=== PATIENT | male | born 1985 | race American Indian/Alaskan Native ===

== ENCOUNTER 2020-02-16 15:19 | Inpatient (IN) | payer OTHER ==
--- NOTE | 2020-02-16 15:20 | Emergency Department Report ---
Blank Doc - Documentation Documentation: 34-year-old male that presents with chest pain and SOB. This initial assessment/diagnostic orders/clinical plan/treatment(s) is/are subject to change based on patient's health status, clinical progression and re- assessment by fellow clinical providers in the ED. Further treatment and workup at subsequent clinical providers discretion. Patient/guardians urged not to elope from the ED as their condition may be serious if not clinically assessed and managed. Initial orders include: 1- Patient sent to [facility] for further evaluation and treatment 2- cardiac workup
[2020-02-16] MEDS ORDERED: HEPARIN 1,000 UNIT/1 ML VIAL IV ONE (15:47)
[2020-02-16] MEDS ORDERED: ASPIRIN 81 MG TAB CHEW PO ONE (15:47)
--- NOTE | 2020-02-16 15:54 | Emergency Department Report ---
ED Chest Pain HPI - General Stated Complaint: ANXIETY/CHEST PAIN Time Seen by Provider: 02/16/20 15:19 Source: patient - History of Present Illness Initial Comments: Patient is a 34-year-old male with no significant past medical history. Patient brought to the emergency room via EMS complaining of chest pain that started approximately 2 PM today after he had an argument with his girlfriend. Patient describes his pain as substernal, pressure with radiation to the left arm. Patient rated his pain a 7 out of 10. Patient sent to triage. EKG in triage found patient to have inferior lateral STEMI. STEMI code immediately initiated by me. Patient discussed with Dr. Jackson, STEMI grocery manager on-call. Cardiac catheterization lab activated. Patient received aspirin and heparin bolus in the ER. MD Complaint: chest pain -: Sudden Pain Location: substernal Pain Radiation: LUE Quality: heaviness, pressure Consistency: constant Treatments Prior to Arrival: none - Related Data Previous Rx's Medication Instructions Recorded Last Taken Type Aspirin [Aspirin BABY CHEW TAB] 81 mg PO QDAY #30 tab.chew 02/18/20 Unknown Rx AtorvaSTATin [Lipitor] 80 mg PO QHS #30 tablet 02/18/20 Unknown Rx Clopidogrel [Plavix] 75 mg PO QDAY #60 tablet 02/18/20 Unknown Rx Metoprolol [Lopressor TAB] 25 mg PO BID #60 tablet 02/18/20 Unknown Rx Allergies Allergy/AdvReac Type Severity Reaction Status Date / Time No Known Allergies Allergy Unverified 02/16/20 15:56 Heart Score - HEART Score History: Highly suspicious EKG: Significant ST-depression Age: < 45 Risk factors: 1-2 risk factors Troponin: > 3x normal limit HEART Score: 7 - Critical Actions Critical Actions: >7 pts:50-65% risk of adverse cardiac event. Early invasive measures ED Review of Systems ROS: Stated complaint: ANXIETY/CHEST PAIN Other details as noted in HPI Comment: All other systems reviewed and negative Constitutional: denies: chills, fever Respiratory: denies: cough, shortness of breath, SOB with exertion Cardiovascular: chest pain. denies: palpitations Gastrointestinal: denies: abdominal pain, nausea, vomiting Musculoskeletal: denies: back pain Neurological: denies: headache, weakness, numbness, paresthesias, confusion, abnormal gait ED Past Medical Hx - Medications Home Medications: Home Medications Medication Instructions Recorded Confirmed Last Taken Type Aspirin [Aspirin BABY CHEW TAB] 81 mg PO QDAY #30 tab.chew 02/18/20 Unknown Rx AtorvaSTATin [Lipitor] 80 mg PO QHS #30 tablet 02/18/20 Unknown Rx Clopidogrel [Plavix] 75 mg PO QDAY #60 tablet 02/18/20 Unknown Rx Metoprolol [Lopressor TAB] 25 mg PO BID #60 tablet 02/18/20 Unknown Rx ED Physical Exam - General General appearance: alert, anxious, in distress - Head Head exam: Present: atraumatic, normocephalic, normal inspection - Eye Eye exam: Present: normal appearance - ENT ENT exam: Present: normal exam, normal orophraynx, mucous membranes moist - Neck Neck exam: Present: normal inspection, full ROM. Absent: tenderness, meningismus - Respiratory Respiratory exam: Present: normal lung sounds bilaterally - Cardiovascular Cardiovascular Exam: Present: regular rate, normal rhythm, normal heart sounds - GI/Abdominal GI/Abdominal exam: Present: soft, normal bowel sounds. Absent: distended, tenderness, guarding, rebound, rigid, organomegaly, mass, bruit, pulsatile mass, hernia - Extremities Exam Extremities exam: Present: normal inspection, full ROM, normal capillary refill. Absent: pedal edema, calf tenderness - Back Exam Back exam: Present: normal inspection, full ROM. Absent: CVA tenderness (R), CVA tenderness (L) - Neurological Exam Neurological exam: Present: alert, oriented X3, CN II-XII intact - Psychiatric Psychiatric exam: Present: normal affect, anxious - Skin Skin exam: Present: warm, intact, normal color ED Course Vital Signs 02/16/20 15:52 Pulse Rate 80 Respiratory 18 Rate Blood Pressure 153/107 O2 Sat by Pulse 100 Oximetry ED Medical Decision Making - Lab Data Result diagrams: 02/17/20 04:51 02/17/20 04:51 - EKG Data -: EKG Interpreted by Nc EKG shows normal: sinus rhythm Rate: normal - EKG Data 02/16/20 16:00 Inferior lateral STEMI - Medical Decision Making Patient is a 34-year-old male with no significant past medical history. Patient brought to the emergency room via EMS complaining of chest pain that started approximately 2 PM today after he had an argument with his girlfriend. Patient describes his pain as substernal, pressure with radiation to the left arm. Patient rated his pain a 7 out of 10. Patient sent to triage. EKG in triage found patient to have inferior lateral STEMI. STEMI code immediately initiated by me. Patient discussed with Dr. Jackson, STEMI grocery manager on-call. Cardiac catheterization lab activated. Patient received aspirin and heparin bolus in the ER. Patient moved to cardiac catheterization lab. I discussed the patient with Dr. Park, he agreed to admit the patient to medical service for further management. Critical Care Time: Yes Critical care time in (mins) excluding proc time.: 30 Critical care attestation.: If time is entered above; I have spent that time in minutes in the direct care of this critically ill patient, excluding procedure time. ED Disposition Clinical Impression: STEMI (ST elevation myocardial infarction) Disposition: [id number] OP ADMIT IP TO THIS HOSP Is pt being admited?: Yes Condition: Stable
[2020-02-16 16:12] LABS: INR 0.93 (0.87-1.13)
[2020-02-16] MEDS ORDERED: NITROGLYCERIN SYRINGE 3 ML ONE (16:12)
[2020-02-16] MEDS ORDERED: LIDOCAINE (2%) 20 MG/1 ML VIAL 20 ML MDV INFILTRATI ONE (16:12)
[2020-02-16] MEDS ORDERED: HEPARIN/NS 5000 UNIT/500ML 1,000 ML IR ONE (16:12)
[2020-02-16] MEDS ORDERED: VERAPAMIL 5 MG/2 ML INJ ONE (16:12)
[2020-02-16 16:13] LABS: Partial Thromboplastin Time 21.2 Sec. (24.2-36.6)
[2020-02-16] MEDS ORDERED: fentaNYL 100 MCG/2 ML INJ ONE (16:13)
[2020-02-16] MEDS ORDERED: MIDAZOLAM 2 MG/2 ML INJ ONE (16:13)
[2020-02-16] MEDS ORDERED: SODIUM CHLORIDE 0.9% 1000 ML 1,000 ML ONE (16:16)
[2020-02-16] MEDS: HEPARIN 10,000 UNITS/10 ML VIAL ONE ×4 (16:38→17:17)
[2020-02-16] MEDS ORDERED: BIVALIRUDIN 250 MG INJ IV ONE ×2 (16:41→16:42)
[2020-02-16 16:47] LABS: Hematocrit 44.5 % (35.5-45.6); Hemoglobin 14.4 gm/dl (11.8-15.2); Mean Corpuscular HGB Conc 32 % (32-34); Mean Corpuscular Volume 92 fl (84-94); Platelet Count 359 K/mm3 (140-440); Red Blood Count 4.83 M/mm3 (3.65-5.03); Red Cell Distribution Width 14.2 % (13.2-15.2)
[2020-02-16] MEDS ORDERED: TIROFIBAN/NS 12,500 MCG/250 ML BAG IV ONE (16:52)
[2020-02-16] MEDS ORDERED: HEPARIN 10,000 UNITS/10 ML VIAL ONE ×2 (16:58→17:48)
--- NOTE | 2020-02-16 17:15 | History and Physical Report ---
History of Present Illness Date of examination: 02/16/20 Date of admission: 02/16/2020 Chief complaint: Severe retrosternal chest pain since 2 PM History of present illness: 34-year-old -[place] male with no significant past medical history brought into the emergency room by EMS for severe retrosternal chest pain that started approximately at 2 PM today after he had an argument with his girlfriend. Chest pain is substernal and 10 on a scale of 1-10. With radiation to the left arm. In the triage EKG was found to have inferior lateral STEMI and code STEMI was called. Patient was taken to cardiac Renal Case Manager for PCI. Patient also received aspirin and heparin bolus in the emergency room prior to being shifted to Renal Case Manager. Cupola Tender Helper on-call is Dr. Walls. Patient was diaphoretic. No shortness of breath. No exacerbating or relieving factors except anger in this case. In the Renal Case Manager patient had 1 episode of ventricular arrhythmia and was converted back to atrial fibrillation with RVR as per the cardiology. - HEART Score History: Highly suspicious EKG: Significant ST-depression Age: < 45 Risk factors: 1-2 risk factors Past History Past Medical History: No medical history Past Surgical History: No surgical history Social history: lives with family, full code Family history: hypertension Medications and Allergies Allergies Allergy/AdvReac Type Severity Reaction Status Date / Time No Known Allergies Allergy Unverified 02/16/20 15:56 Home Medications Medication Instructions Recorded Confirmed Last Taken Type No Known Home Medications [No 02/16/20 02/16/20 Unknown History Reported Home Medications] Review of Systems All systems: negative Constitutional: no weight loss, no weight gain, no fever, no chills, no sweats, no night sweats Ears, nose, mouth and throat: no ear pain, no ear discharge, no tinnitis, no decreased hearing, no nose pain, no nasal congestion Cardiovascular: chest pain, no orthopnea, no palpitations, no rapid/irregular heart beat, no edema, no syncope, no lightheadedness, no shortness of breath, no dyspnea on exertion, no paroxysmal nocturnal dyspnea, no claudication, no phlebitis Respiratory: no cough, no cough with sputum, no excessive sputum, no hemoptysis, no shortness of breath, no dyspnea on exertion Gastrointestinal: no abdominal pain, no nausea, no vomiting, no diarrhea, no constipation, no change in bowel habits, no hematemesis, no coffee ground emesis Genitourinary Male: no dysuria, no hematuria, no flank pain Rectal: no pain Musculoskeletal: no neck stiffness, no neck pain, no shooting arm pain, no arm numbness/tingling, no low back pain, no shooting leg pain, no leg numbness/tingling, no redness of joints Integumentary: no rash, no pruritis, no redness, no sores, no wounds, no jaundice, no boils, no blisters Neurological: no head injury, no transient paralysis, no paralysis, no weakness, no parathesias, no numbness, no tingling, no seizures, no syncope, no tremors, no ataxia, no lack of coordination Psychiatric: no anxiety, no memory loss, no change in sleep habits, no sleep disturbances, no insomnia, no hypersomnia, no change in appetite, no change in libido, no suicidal ideation, no disorientation, no hallucinations Endocrine: no cold intolerance, no heat intolerance, no polyphagia, no excessive thirst, no polydipsia, no polyuria, no nocturia, no excessive sweating, no flushing, no weight change Hematologic/Lymphatic: no easy bruising, no easy bleeding Allergic/Immunologic: no urticaria, no allergic rhinitis, no wheezing Exam - Constitutional Vitals: Temp Pulse Resp BP Pulse Ox 80 18 153/107 100 02/16/20 15:52 02/16/20 15:52 02/16/20 15:52 02/16/20 15:52 General appearance: Present: no acute distress, well-nourished - EENT Eyes: Present: PERRL ENT: hearing intact, clear oral mucosa - Neck Neck: Present: supple, normal ROM - Respiratory Respiratory effort: normal Respiratory: bilateral: CTA - Cardiovascular Heart rate: 80 Rhythm: regular Heart Sounds: Present: S1 & S2. Absent: rub, click - Extremities Extremities: no ischemia, pulses intact, pulses symmetrical, No edema Peripheral Pulses: within normal limits - Abdominal General gastrointestinal: Present: soft, non-tender, non-distended, normal bowel sounds Male genitourinary: Present: normal - Integumentary Integumentary: Present: clear, warm, dry - Musculoskeletal Musculoskeletal: gait normal, strength equal bilaterally - Psychiatric Psychiatric: appropriate mood/affect, intact judgment & insight - Neurologic Neurologic: CNII-XII intact, moves all extremities HEART Score - HEART Score History: Highly suspicious EKG: Significant ST-depression Age: < 45 Risk factors: 1-2 risk factors Troponin: < normal limit HEART Score: 5 - Critical Actions Critical Actions: >7 pts:50-65% risk of adverse cardiac event. Early invasive measures Results - Labs CBC & Chem 7: 02/16/20 Unknown 02/16/20 18:01 Labs: Laboratory Last Values WBC 11.9 K/mm3 (4.5-11.0) H 02/16/20 Unknown RBC 4.83 M/mm3 (3.65-5.03) 02/16/20 Unknown Hgb 14.4 gm/dl (11.8-15.2) 02/16/20 Unknown Hct 44.5 % (35.5-45.6) 02/16/20 Unknown MCV 92 fl (84-94) 02/16/20 Unknown MCH 30 pg (28-32) 02/16/20 Unknown MCHC 32 % (32-34) 02/16/20 Unknown RDW 14.2 % (13.2-15.2) 02/16/20 Unknown Plt Count 359 K/mm3 (140-440) 02/16/20 Unknown Lymph % (Auto) Dry Mill Operator 02/16/20 Unknown Tripp % (Auto) Dry Mill Operator 02/16/20 Unknown Eos % (Auto) Dry Mill Operator 02/16/20 Unknown Baso % (Auto) Dry Mill Operator 02/16/20 Unknown Lymph # (Auto) Dry Mill Operator 02/16/20 Unknown Tripp # (Auto) Dry Mill Operator 02/16/20 Unknown Eos # (Auto) Dry Mill Operator 02/16/20 Unknown Baso # (Auto) Dry Mill Operator 02/16/20 Unknown Seg Neutrophils % Dry Mill Operator 02/16/20 Unknown Seg Neutrophils # Dry Mill Operator 02/16/20 Unknown PT 12.6 Sec. (12.2-14.9) 02/16/20 Unknown INR 0.93 (0.87-1.13) 02/16/20 Unknown APTT 21.2 Sec. (24.2-36.6) L 02/16/20 Unknown Short CBC 02/16/20 Range/Units Unknown WBC 11.9 H (4.5-11.0) K/mm3 Hgb 14.4 (11.8-15.2) gm/dl Hct 44.5 (35.5-45.6) % Plt Count 359 (140-440) K/mm3 Short CBC 02/16/20 Range/Units Unknown WBC 11.9 H (4.5-11.0) K/mm3 Hgb 14.4 (11.8-15.2) gm/dl Hct 44.5 (35.5-45.6) % Plt Count 359 (140-440) K/mm3 BMP 02/16/20 18:01 Sodium 137 Potassium 3.8 Chloride 101.1 Carbon Dioxide 24 BUN 10 Creatinine 0.9 Glucose 115 H Calcium 8.3 L Cardiac Enzymes 02/16/20 02/16/20 02/16/20 Range/Units 18:01 18:01 19:40 Total Creatine Kinase 670 H 1102 H (55-170) units/L CK-MB (CK-2) 21.7 H 87.5 H (0.0-4.0) ng/mL Troponin T 0.176 H* 0.531 H* D (0.00-0.029) ng/mL Liver Function 02/16/20 Range/Units 18:01 Total Bilirubin 0.40 (0.1-1.2) mg/dL AST 32 (5-40) units/L ALT 27 (7-56) units/L Alkaline Phosphatase 65 (35-129) units/L Albumin 3.8 L (3.9-5) g/dL Urine 02/16/20 Range/Units 20:07 Urine Color Straw (Yellow) Urine pH 8.0 H (5.0-7.0) Ur Specific [place] 1.026 (1.003-1.030) Urine Protein <15 mg/dl (Negative) mg/dL Urine Glucose (UA) Neg (Negative) mg/dL - Imaging and Cardiology EKG: report reviewed (Inferior wall STEMI) Assessment and Plan Assessment and plan: The high probability OF a clinically significant sudden or life-threatening deterioration of the cardiorespiratory system and endocrine system required my full and direct attention, intervention and postoperative management. The aggregate critical care time was 40 minutes. The time is in addition to time spent performing reported procedures but includes the followin: Data review and interpretation 2: Patient assessment and monitoring of vital signs 3: Documentation 4:: Medication orders and management Advance Directives: Yes (Full code) VTE prophylaxis?: Chemical Plan of care discussed with patient/family: Yes - Patient Problems (1) STEMI (ST elevation myocardial infarction) Current Visit: No Status: Acute Plan to address problem: Patient was taken to Renal Case Manager and had PCI Had one episode of ventricular arrhythmia which was converted to sinus rhythm Patient is now in A. fib Patient is on Aggrastat Patient had stent to circumflex Total CK was 1102 and CK-MB was elevated in mid 80s Troponin also elevated significantly which is consistent with STEMI Brilinta 90 mg twice a day added (2) Hypertension Current Visit: Yes Status: Chronic Qualifiers: Hypertension type: essential hypertension Qualified Code(s): I10 - Essential (primary) hypertension Plan to address problem: No history of hypertension Patient blood pressure has been high which can be pain induced Patient started on metoprolol 25 twice daily for cardioprotective reasons (3) DVT prophylaxis Current Visit: Yes Status: Acute Plan to address problem: Patient on Aggrastat and GI prophylaxis
[2020-02-16] MEDS ORDERED: ACETAMINOPHEN 325 MG TAB PO PRN (17:16)
[2020-02-16] MEDS ORDERED: oxyCODONE /ACETAMINOPHEN 5-325MG TAB PO PRN (17:16)
[2020-02-16] MEDS ORDERED: HYDROmorphone 1 MG/1 ML INJ IV PRN (17:16)
[2020-02-16] MEDS ORDERED: ONDANSETRON 4 MG/2 ML INJ IV PRN (17:16)
[2020-02-16] MEDS ORDERED: TICAGRELOR 90 MG TAB ONE (17:19)
[2020-02-16] MEDS ORDERED: D5W/0.9% NACL 1,000 ML IV SCH (18:00)
[2020-02-16] MEDS ORDERED: SODIUM CHLORIDE IV SCH (18:16)
[2020-02-16] MEDS ORDERED: TIROFIBAN IV SCH (18:16)
[2020-02-16 18:26] LABS: Creatine Kinase MB 21.7 ng/mL (0.0-4.0)
[2020-02-16 18:27] LABS: BUN/Creatinine Ratio 11; Blood Urea Nitrogen 10 mg/dL (9-20); Calcium 8.3 mg/dL (8.4-10.2)
[2020-02-16 18:28] LABS: Alanine Aminotransferase 27 units/L (7-56); Albumin 3.8 g/dL (3.9-5); Hemolysis Index 8
--- NOTE | 2020-02-16 19:21 | Cardiac Catherization Report ---
CARDIAC CATHETERIZATION REPORT. CLINICAL INFORMATION: The patient is a pleasant 34-year-old male presented to the ED at [facility] with a history of chest pains associated with shortness of breath and palpitations and sweating. EKG showed inferolateral wall injury. He is a chronic tobacco smoker, smokes cigarettes on a regular basis for more than 20+ years. He also smokes marijuana. He has hypertension present. I reviewed his EKG, had an extensive discussion with the patient, agreed to proceed for diagnostic cardiac catheterization with the intention to proceed for primary PCI of the culprit lesion. Risks, options, and benefits were extensively discussed. The patient has labs drawn in the ED; however, the sample was hemolyzed, I do not have baseline labs before proceeding for heart catheterization. PROCEDURES PERFORMED: 1. Left heart catheterization. 2. Selective coronary angiogram. 3. LV angiogram. 4. Primary PCI of the proximal left circumflex coronary artery with a deployment of 2.5 x 38 mm Resolute [place] SILVANA. 5. Acute DHF. DESCRIPTION OF PROCEDURE: The right wrist area was cleaned and draped in sterile fashion. A 2% lidocaine was used for local anesthesia. Right radial artery was accessed with a micropuncture needle and a 6-Omani glide sheath was inserted. Selective angiograms of the left and right coronary systems were obtained with a 5-Omani [place] diagnostic catheter. LV angiogram was obtained in BHARDWAJ projection with a 6-Omani pigtail catheter. After reviewing the diagnostic angiographic images, we proceeded for intervention to the left circumflex coronary artery. CORONARY ANGIOGRAM FINDINGS: Left main coronary artery is large caliber vessel, free of disease. LAD is a large caliber vessel, distal LAD has intraluminal irregularities. Principal diagonal branch is a medium caliber vessel, ostium has 40%-50% stenosis noted. Left circumflex coronary artery is a medium caliber vessel, proximal left circumflex coronary artery is 100% occluded with NELI 0 flow. Right coronary artery is a large caliber vessel, proximal RCA has a 50% stenosis, mid RCA has 60-70% stenosis, these lesions are stable lesions. Right PDA is a small to medium caliber vessel, free of disease. LV ANGIOGRAM: LV angiogram was obtained in the BHARDWAJ projection. Left ventricular ejection fraction is 50%, LVEDP is 23 mmHg. PCI to proximal left circumflex coronary artery. The patient was given heparin during the procedure. ACT is maintained about 200, was also given IV Aggrastat followed by Aggrastat drip protocol. A 6-Omani EBU 3.0 guiding catheter was used to engage the left main coronary artery. A 0.014 BMW wire was used, successfully cross the totally occluded lesion in the proximal segment of the left circumflex coronary artery, subsequently predilated with 2.5 x 12 mm Euphora balloon. Subsequently, the proximal left circumflex coronary artery into OM branch is stented with 2.5 x 38 mm Resolute [place] SILVANA. The stent was postdilated with a 2.75 x 12 mm balloon. Post-intervention angiographic image of the left circumflex coronary artery demonstrated residual stenosis of 0% in the stented segment, NELI 3 flow noted in the left circumflex coronary artery/OM system. The patient tolerated the procedure very well. At the end of the procedure, the guiding catheter and guidewire were removed, no complications were noted. The patient had one episode of ventricular fibrillation, which was successfully resuscitated with one shock. The patient was hemodynamically stable after that with a marginal blood pressure. The patient was alert, awake, and neurologically and hemodynamically stable prior to transfer from lab courier to ICU. 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 Proximal left circumflex coronary artery is 100% occluded with NELI 0 flow, subsequently performed primary PCI of the proximal left circumflex coronary artery with a deployment of 2.5 x 38 mm Resolute [place] SILVANA, establishing NELI 3 flow with a residual stenosis 0%. RCA has a moderate disease in the proximal segment, severe disease in the mid segment. Mid segment has 60-70% stenosis, stable lesion. LVEF 50%. LVEDP is increased, 23 mmHg, acute diastolic heart failure -- I believe it will improve with optimal medical therapy over a period of time. RECOMMENDATIONS: 1. Aspirin 81 mg p.o. every day, uninterruptedly rest of the life. 2. Brilinta 90 mg p.o. b.i.d. uninterruptedly at least for 1 year. 3. Beta paul therapy along with statin therapy. 4. Elective PCI to RCA. 5. We will follow up the labs, especially the lipid profile. His long-term cardiovascular health/overall prognosis depends upon tobacco cessation and staying away from marijuana, explained to the patient at length about it. Discussed with the hospitalist team regarding his management. Explained and recommended elective intervention to the distal RCA after optimizing the medical therapy in terms of treating the cardiovascular risk factors. JOB# [id number] MELY/TREY BUTCHER
[2020-02-16 20:33] LABS: Bilirubin,Urine NEG (Negative); Blood,Urine NEG (Negative); Color,Urine Straw (Yellow); Protein,Urine <15 mg/dL mg/dL (Negative)
[2020-02-16 20:40] LABS: Amphetamine Screen,Urine PRESUMPTIVE NEGATIVE; Benzodiazepines Screen,Urine PRESUMPTIVE POSITIVE; Cannabinoid Screen,Urine PRESUMPTIVE POSITIVE; Cocaine Screen,Urine PRESUMPTIVE NEGATIVE; Methadone Screen,Urine PRESUMPTIVE NEGATIVE; Opiate Screen,Urine PRESUMPTIVE NEGATIVE
[2020-02-16 20:52] LABS: Chol/HDL Ratio 6.33 %
[2020-02-16 20:55] LABS: Creatine Kinase MB 87.5 ng/mL (0.0-4.0)
--- NOTE | 2020-02-16 21:16 | XRay Report ---
CHEST 1 VIEW INDICATION / CLINICAL INFORMATION: Chest Pain. COMPARISON: None available. FINDINGS: SUPPORT DEVICES: None. HEART / MEDIASTINUM: No significant abnormality. LUNGS / PLEURA: No significant pulmonary or pleural abnormality. No pneumothorax. ADDITIONAL FINDINGS: No significant additional findings. IMPRESSION: 1. No acute findings. Signer Name: Rio Selby MD Signed: 02/16/2020 9:12 PM Workstation Name: [id number]
[2020-02-16] MEDS: FAMOTIDINE 20 MG/2 ML INJ IV SCH (21:32)
[2020-02-16] MEDS: TICAGRELOR 90 MG TAB PO SCH (21:32)
[2020-02-16] MEDS: METOPROLOL TARTRATE 25 MG TAB PO SCH (21:32)
[2020-02-16 23:55] LABS: Creatine Kinase MB 171.8 ng/mL (0.0-4.0)
[2020-02-17 05:38] LABS: Basophils % (Auto) 0.3 % (0.0-1.8); Eosinophils # (Auto) 0.2 K/mm3 (0.0-0.4); Eosinophils % (Auto) 1.6 % (0.0-4.3); Hematocrit 40.3 % (35.5-45.6); Hemoglobin 13.4 gm/dl (11.8-15.2); Lymphocytes # (Auto) 2.5 K/mm3 (1.2-5.4); Lymphocytes % (Auto) 20.2 % (13.4-35.0); Mean Corpuscular HGB Conc 33 % (32-34); Mean Corpuscular Volume 92 fl (84-94); Platelet Count 329 K/mm3 (140-440); Red Blood Count 4.38 M/mm3 (3.65-5.03)
[2020-02-17 05:49] LABS: BUN/Creatinine Ratio 11; Blood Urea Nitrogen 9 mg/dL (9-20); Calcium 8.7 mg/dL (8.4-10.2); Hemolysis Index 13
[2020-02-17 05:52] LABS: Creatine Kinase MB 165.9 ng/mL (0.0-4.0)
[2020-02-17] MEDS: TICAGRELOR 90 MG TAB PO SCH ×2 (09:27→22:20)
[2020-02-17] MEDS: FAMOTIDINE 20 MG/2 ML INJ IV SCH ×2 (09:27→22:20)
[2020-02-17] MEDS: METOPROLOL TARTRATE 25 MG TAB PO SCH ×4 (09:27→23:31)
[2020-02-17] MEDS: ASPIRIN 81 MG TAB CHEW PO SCH (09:27)
--- NOTE | 2020-02-17 09:50 | Progress Note ---
<CARLOS ALBERTODOYLE - Last Filed: 02/17/20 10:08> Assessment and Plan Acute STEMI s/p PCI of the proximal left Cx using Resolute [place] drug eluting stent currently on DAPT with Brilinta and aspirin Recommendations: Advised smoking cessation. Obtain an echocardiogram. Continue medical therapy for coronary artery disease. As an outpatient, will plan for elective intervention to the distal RCA. Okay to transfer to telemetry today. Subjective Date of service: 02/17/20 Interval history: Patient is resting in bed and appears well. He denies chest pain. Denies unusual shortness of breath and palpitations. Objective Vital Signs Temp Pulse Pulse Resp BP Pulse Ox 02/17/20 09:27 96 H 122/82 02/17/20 09:01 110 H 9 L 96/69 97 02/17/20 08:45 101 H 19 104/74 97 02/17/20 08:31 119 H 18 113/68 99 02/17/20 08:15 103 H 15 113/59 97 02/17/20 08:00 97.7 F 110 H 110 H 23 126/83 99 02/17/20 07:45 102 H 22 120/77 98 02/17/20 07:30 101 H 22 115/87 96 02/17/20 07:15 94 H 24 126/87 99 02/17/20 07:00 80 33 H 127/99 89 02/17/20 06:45 106 H 34 H 135/100 96 02/17/20 06:31 106 H 23 61/37 97 02/17/20 06:15 113 H 17 116/65 97 02/17/20 06:01 84 15 135/82 02/17/20 05:45 109 H 18 129/78 92 02/17/20 05:30 96 H 13 120/72 100 02/17/20 05:15 107 H 29 H 132/86 96 02/17/20 05:01 111 H 11 L 132/86 98 02/17/20 04:45 100 H 16 122/83 99 02/17/20 04:31 82 27 H 130/86 96 02/17/20 04:15 106 H 21 107/62 95 02/17/20 04:00 107 H 95 H 25 H 126/87 96 02/17/20 03:45 108 H 23 99/72 93 10/08/20 03:40 97.8 F 10/08/20 03:30 89 26 H 102/69 92 02/17/20 03:15 87 25 H 108/74 92 02/17/20 03:01 101 H 25 H 123/82 92 02/17/20 02:45 100 H 20 126/77 97 02/17/20 02:30 122 H 17 123/78 93 02/17/20 02:15 90 18 116/84 97 02/17/20 02:01 118 H 16 122/100 100 02/17/20 01:45 97 H 13 137/92 96 02/17/20 01:31 95 H 25 H 109/67 95 02/17/20 01:15 121 H 22 156/85 97 02/17/20 01:01 122 H 22 116/67 95 02/17/20 00:45 121 H 24 115/80 93 02/17/20 00:31 105 H 12 123/89 96 02/17/20 00:15 112 H 16 121/75 97 02/17/20 00:00 97.6 F 100 H 105 H 20 124/91 95 02/16/20 23:45 112 H 16 136/81 98 02/16/20 23:31 102 H 12 74/47 98 02/16/20 23:15 120 H 25 H 108/75 98 02/16/20 23:00 97 H 21 127/97 97 02/16/20 22:45 120 H 16 130/87 98 02/16/20 22:31 114 H 12 140/96 94 02/16/20 22:29 117 H 17 96 02/16/20 22:16 133 H 19 161/101 97 02/16/20 22:00 124 H 13 147/102 99 02/16/20 21:46 111 H 20 137/67 98 02/16/20 21:32 131 H 120/91 02/16/20 21:30 137 H 26 H 140/96 98 02/16/20 21:16 141 H 14 137/104 99 02/16/20 21:00 134 H 19 131/92 98 02/16/20 20:46 133 H 13 139/102 99 02/16/20 20:30 142 H 21 134/87 98 02/16/20 20:16 129 H 16 162/94 98 02/16/20 20:00 96.6 F L 114 H 124 H 16 140/90 99 02/16/20 19:46 147 H 15 140/90 100 02/16/20 19:30 131 H 19 140/105 98 02/16/20 19:16 113 H 13 149/96 99 02/16/20 19:00 125 H 18 131/89 99 02/16/20 18:46 121 H 22 132/93 98 02/16/20 18:30 98 02/16/20 15:52 80 18 153/107 100 - Physical Examination General: No Apparent Distress HEENT: Positive: PERRL Neck: Positive: trachea midline Cardiac: Positive: Reg Rate and Rhythm Lungs: Positive: Decreased Breath Sounds Neuro: Positive: Grossly Intact Incision: Cardiac Cath Site (right radial) - Labs and Meds Cardiac Enzymes 02/16/20 02/16/20 02/16/20 Range/Units 18:01 18:01 19:40 AST 32 (5-40) units/L CK-MB (CK-2) 21.7 H 87.5 H (0.0-4.0) ng/mL 02/16/20 02/17/20 Range/Units 23:11 04:51 AST (5-40) units/L CK-MB (CK-2) 171.8 H 165.9 H (0.0-4.0) ng/mL Coagulation 02/16/20 Range/Units Unknown PT 12.6 (12.2-14.9) Sec. INR 0.93 (0.87-1.13) APTT 21.2 L (24.2-36.6) Sec. Lipids 02/16/20 Range/Units 19:40 Triglycerides 87 (2-149) mg/dL Cholesterol 228 H (50-199) mg/dL HDL Cholesterol 36 L (40-59) mg/dL Cholesterol/HDL Ratio 6.33 % CBC 02/16/20 02/17/20 Range/Units Unknown 04:51 WBC 11.9 H 12.4 H (4.5-11.0) K/mm3 RBC 4.83 4.38 (3.65-5.03) M/mm3 Hgb 14.4 13.4 (11.8-15.2) gm/dl Hct 44.5 40.3 (35.5-45.6) % Plt Count 359 329 (140-440) K/mm3 Lymph # (Auto) Seat Cover Cutter 2.5 [place] # (Auto) Seat Cover Cutter 1.0 H Eos # (Auto) Seat Cover Cutter 0.2 Baso # (Auto) Seat Cover Cutter 0.0 Comprehensive Metabolic Panel 02/16/20 02/17/20 Range/Units 18:01 04:51 Sodium 137 139 (137-145) mmol/L Potassium 3.8 3.8 (3.6-5.0) mmol/L Chloride 101.1 104.3 (98-107) mmol/L Carbon Dioxide 24 23 (22-30) mmol/L BUN 10 9 (9-20) mg/dL Creatinine 0.9 0.8 (0.8-1.3) mg/dL Glucose 115 H 108 H (75-100) mg/dL Calcium 8.3 L 8.7 (8.4-10.2) mg/dL AST 32 (5-40) units/L ALT 27 (7-56) units/L Alkaline Phosphatase 65 (35-129) units/L Total Protein 6.3 (6.3-8.2) g/dL Albumin 3.8 L (3.9-5) g/dL - Imaging and Cardiology EKG: report reviewed (Inferior wall STEMI) <MAGGIE SANCHEZ - Last Filed: 02/17/20 21:01> Subjective Interval history: I SAW THIS PT & AGREE WITH THE Dx & Tx PLAN Objective Vital Signs Temp Pulse Pulse Resp BP Pulse Ox 02/17/20 18:53 110 H 137/69 02/17/20 17:01 110 H 15 137/69 100 02/17/20 16:45 128 H 16 137/69 100 02/17/20 16:30 111 H 18 137/69 99 02/17/20 16:15 114 H 20 109/82 96 02/17/20 16:00 97.9 F 106 H 106 H 14 113/77 97 02/17/20 15:45 109 H 14 108/86 99 02/17/20 15:31 108 H 19 114/71 97 02/17/20 15:15 122 H 16 108/86 100 02/17/20 15:00 102 H 19 88/42 98 02/17/20 14:45 109 H 21 93/51 100 02/17/20 14:31 121 H 18 90/52 98 02/17/20 14:15 120 H 24 95/62 96 10/08/20 14:00 88 25 H 111/69 97 02/17/20 13:46 113 H 105/55 02/17/20 13:45 104 H 22 105/55 98 02/17/20 13:31 110 H 16 97/60 99 02/17/20 13:15 102 H 14 110/63 99 02/17/20 13:01 98 H 11 L 108/71 100 02/17/20 12:45 98 H 18 123/85 99 02/17/20 12:31 118 H 24 125/89 98 02/17/20 12:16 112 H 20 127/85 100 02/17/20 12:00 97.8 F 104 H 104 H 12 121/89 98 02/17/20 11:45 102 H 13 109/69 99 02/17/20 11:31 117 H 15 111/75 96 02/17/20 11:15 96 H 16 111/75 98 02/17/20 11:01 113 H 20 123/96 94 02/17/20 10:45 98 H 21 117/77 96 02/17/20 10:30 105 H 17 120/82 95 02/17/20 10:15 109 H 19 96/69 96 02/17/20 10:14 108 H 24 99 02/17/20 09:45 97 H 20 113/81 99 02/17/20 09:31 99 H 17 108/80 96 02/17/20 09:27 96 H 122/82 02/17/20 09:15 104 H 22 118/84 98 02/17/20 09:01 110 H 9 L 96/69 97 02/17/20 08:45 101 H 19 104/74 97 02/17/20 08:31 119 H 18 113/68 99 02/17/20 08:15 103 H 15 113/59 97 02/17/20 08:00 97.7 F 110 H 110 H 23 126/83 99 02/17/20 07:45 102 H 22 120/77 98 02/17/20 07:30 101 H 22 115/87 96 02/17/20 07:15 94 H 24 126/87 99 02/17/20 07:00 80 33 H 127/99 89 02/17/20 06:45 106 H 34 H 135/100 96 02/17/20 06:31 106 H 23 61/37 97 02/17/20 06:15 113 H 17 116/65 97 02/17/20 06:01 84 15 135/82 02/17/20 05:45 109 H 18 129/78 92 02/17/20 05:30 96 H 13 120/72 100 02/17/20 05:15 107 H 29 H 132/86 96 02/17/20 05:01 111 H 11 L 132/86 98 02/17/20 04:45 100 H 16 122/83 99 02/17/20 04:31 82 27 H 130/86 96 02/17/20 04:15 106 H 21 107/62 95 02/17/20 04:00 107 H 95 H 25 H 126/87 96 02/17/20 03:45 108 H 23 99/72 93 02/17/20 03:40 97.8 F 02/17/20 03:30 89 26 H 102/69 92 02/17/20 03:15 87 25 H 108/74 92 02/17/20 03:01 101 H 25 H 123/82 92 02/17/20 02:45 100 H 20 126/77 97 02/17/20 02:30 122 H 17 123/78 93 02/17/20 02:15 90 18 116/84 97 02/17/20 02:01 118 H 16 122/100 100 02/17/20 01:45 97 H 13 137/92 96 02/17/20 01:31 95 H 25 H 109/67 95 02/17/20 01:15 121 H 22 156/85 97 02/17/20 01:01 122 H 22 116/67 95 02/17/20 00:45 121 H 24 115/80 93 02/17/20 00:31 105 H 12 123/89 96 02/17/20 00:15 112 H 16 121/75 97 02/17/20 00:00 97.6 F 100 H 105 H 20 124/91 95 02/16/20 23:45 112 H 16 136/81 98 02/16/20 23:31 102 H 12 74/47 98 02/16/20 23:15 120 H 25 H 108/75 98 02/16/20 23:00 97 H 21 127/97 97 02/16/20 22:45 120 H 16 130/87 98 02/16/20 22:31 114 H 12 140/96 94 02/16/20 22:29 117 H 17 96 02/16/20 22:16 133 H 19 161/101 97 02/16/20 22:00 124 H 13 147/102 99 02/16/20 21:46 111 H 20 137/67 98 02/16/20 21:32 131 H 120/91 02/16/20 21:30 137 H 26 H 140/96 98 02/16/20 21:16 141 H 14 137/104 99 - Labs and Meds Cardiac Enzymes 02/16/20 02/16/20 02/17/20 Range/Units 19:40 23:11 04:51 CK-MB (CK-2) 87.5 H 171.8 H 165.9 H (0.0-4.0) ng/mL CBC 02/17/20 Range/Units 04:51 WBC 12.4 H (4.5-11.0) K/mm3 RBC 4.38 (3.65-5.03) M/mm3 Hgb 13.4 (11.8-15.2) gm/dl Hct 40.3 (35.5-45.6) % Plt Count 329 (140-440) K/mm3 Lymph # (Auto) 2.5 (1.2-5.4) K/mm3 [place] # (Auto) 1.0 H (0.0-0.8) K/mm3 Eos # (Auto) 0.2 (0.0-0.4) K/mm3 Baso # (Auto) 0.0 (0.0-0.1) K/mm3 Comprehensive Metabolic Panel 02/17/20 Range/Units 04:51 Sodium 139 (137-145) mmol/L Potassium 3.8 (3.6-5.0) mmol/L Chloride 104.3 (98-107) mmol/L Carbon Dioxide 23 (22-30) mmol/L BUN 9 (9-20) mg/dL Creatinine 0.8 (0.8-1.3) mg/dL Glucose 108 H (75-100) mg/dL Calcium 8.7 (8.4-10.2) mg/dL
--- NOTE | 2020-02-17 10:09 | Progress Note ---
Assessment and Plan Assessment and plan: (1) STEMI (ST elevation myocardial infarction) Current Visit: No Status: Acute Plan to address problem: Patient was taken to Drug Abuse Social Worker and had PCI Had one episode of ventricular arrhythmia which was converted to sinus rhythm Patient is now in sinus rhythm Patient is on DAPT Patient had stent to circumflex Troponin also elevated (2) Hypertension Current Visit: Yes Status: Chronic Qualifiers: Hypertension type: essential hypertension Qualified Code(s): I10 - Essential (primary) hypertension Plan to address problem: No history of hypertension Patient blood pressure has been high which can be pain induced Patient started on metoprolol 25 twice daily for cardioprotective reasons (3) DVT prophylaxis Current Visit: Yes Status: Acute Plan to address problem: Patient on Aggrastat and GI prophylaxis Disposition; transfer to the floor. Discharge when cleared by cardiology History Interval history: Patient was seen and evaluated this morning Patient denies chest pain, or shortness of breath Hospitalist Physical - Physical exam Narrative exam: Not in cardiopulmonary distress. The patient appeared well nourished and normally developed. Vital signs as documented. Head exam is unremarkable. No scleral icterus . Neck is without jugular venous distension, thyromegaly, or carotid bruits. Lungs are clear to auscultation. Cardiac exam reveals regular rate and Rhythm. Abdominal exam reveals normal bowel sounds, nontender, no organomegaly. Extremities are nonedematous and both femoral and pedal pulses are normal. FLY FRAME TENDER: Alert and oriented 3. No focal weakness. - Constitutional Vitals: Temp Pulse Resp BP Pulse Ox 97.7 F 96 H 9 L 122/82 97 02/17/20 08:00 02/17/20 09:27 02/17/20 09:01 02/17/20 09:27 02/17/20 09:01 General appearance: Present: no acute distress, well-nourished HEART Score - HEART Score EKG: Significant ST-depression Age: < 45 Risk factors: 1-2 risk factors Troponin: Troponin T 2.400 ng/mL (0.00-0.029) H* D 02/17/20 04:51 Troponin: < normal limit - Critical Actions Critical Actions: >7 pts:50-65% risk of adverse cardiac event. Early invasive measures Results - Labs CBC & Chem 7: 02/17/20 04:51 02/17/20 04:51 Labs: Laboratory Last Values WBC 12.4 K/mm3 (4.5-11.0) H 02/17/20 04:51 RBC 4.38 M/mm3 (3.65-5.03) 02/17/20 04:51 Hgb 13.4 gm/dl (11.8-15.2) 02/17/20 04:51 Hct 40.3 % (35.5-45.6) 02/17/20 04:51 MCV 92 fl (84-94) 02/17/20 04:51 MCH 31 pg (28-32) 02/17/20 04:51 MCHC 33 % (32-34) 02/17/20 04:51 RDW 14.0 % (13.2-15.2) 02/17/20 04:51 Plt Count 329 K/mm3 (140-440) 02/17/20 04:51 Lymph % (Auto) 20.2 % (13.4-35.0) 02/17/20 04:51 [place] % (Auto) 8.0 % (0.0-7.3) H 02/17/20 04:51 Eos % (Auto) 1.6 % (0.0-4.3) 02/17/20 04:51 Baso % (Auto) 0.3 % (0.0-1.8) 02/17/20 04:51 Lymph # (Auto) 2.5 K/mm3 (1.2-5.4) 02/17/20 04:51 [place] # (Auto) 1.0 K/mm3 (0.0-0.8) H 02/17/20 04:51 Eos # (Auto) 0.2 K/mm3 (0.0-0.4) 02/17/20 04:51 Baso # (Auto) 0.0 K/mm3 (0.0-0.1) 02/17/20 04:51 Seg Neutrophils % 69.9 % (40.0-70.0) 02/17/20 04:51 Seg Neutrophils # 8.6 K/mm3 (1.8-7.7) H 02/17/20 04:51 PT 12.6 Sec. (12.2-14.9) 02/16/20 Unknown INR 0.93 (0.87-1.13) 02/16/20 Unknown APTT 21.2 Sec. (24.2-36.6) L 02/16/20 Unknown Sodium 139 mmol/L (137-145) 02/17/20 04:51 Potassium 3.8 mmol/L (3.6-5.0) 02/17/20 04:51 Chloride 104.3 mmol/L (98-107) 02/17/20 04:51 Carbon Dioxide 23 mmol/L (22-30) 02/17/20 04:51 Anion Gap 16 mmol/L 02/17/20 04:51 BUN 9 mg/dL (9-20) 02/17/20 04:51 Creatinine 0.8 mg/dL (0.8-1.3) 02/17/20 04:51 Estimated GFR > 60 ml/min 02/17/20 04:51 BUN/Creatinine Ratio 11 % 02/17/20 04:51 Glucose 108 mg/dL (75-100) H 02/17/20 04:51 Hemoglobin A1c 5.8 % (4-6) 02/16/20 19:40 Calcium 8.7 mg/dL (8.4-10.2) 02/17/20 04:51 Total Bilirubin 0.40 mg/dL (0.1-1.2) 02/16/20 18:01 AST 32 units/L (5-40) 02/16/20 18:01 ALT 27 units/L (7-56) 02/16/20 18:01 Alkaline Phosphatase 65 units/L (35-129) 02/16/20 18:01 Total Creatine Kinase 1612 units/L (55-170) H 02/17/20 04:51 CK-MB (CK-2) 165.9 ng/mL (0.0-4.0) H 02/17/20 04:51 CK-MB (CK-2) Rel Index 10.2 (0-4) H 02/17/20 04:51 Troponin T 2.400 ng/mL (0.00-0.029) H* D 02/17/20 04:51 Total Protein 6.3 g/dL (6.3-8.2) 02/16/20 18:01 Albumin 3.8 g/dL (3.9-5) L 02/16/20 18:01 Albumin/Globulin Ratio 1.5 % 02/16/20 18:01 Triglycerides 87 mg/dL (2-149) 02/16/20 19:40 Cholesterol 228 mg/dL (50-199) H 02/16/20 19:40 LDL Cholesterol Direct 170 mg/dL (50-130) H 02/16/20 19:40 HDL Cholesterol 36 mg/dL (40-59) L 02/16/20 19:40 Cholesterol/HDL Ratio 6.33 % 02/16/20 19:40 Urine Color Straw (Yellow) 02/16/20 20:07 Urine Turbidity Clear (Clear) 02/16/20 20:07 Urine pH 8.0 (5.0-7.0) H 02/16/20 20:07 Ur Specific [place] 1.026 (1.003-1.030) 02/16/20 20: Urine Protein <15 mg/dl mg/dL (Negative) 02/16/20 20:07 Urine Glucose (UA) Neg mg/dL (Negative) 02/16/20 20:07 Urine Ketones Tr mg/dL (Negative) 02/16/20 20:07 Urine Blood Neg (Negative) 02/16/20 20:07 Urine Nitrite Neg (Negative) 02/16/20 20:07 Urine Bilirubin Neg (Negative) 02/16/20 20: Urine Urobilinogen 2.0 mg/dL (<2.0) 02/16/20 20:07 Ur Leukocyte Esterase Neg (Negative) 02/16/20 20:07 Urine WBC (Auto) 1.0 /HPF (0.0-6.0) 02/16/20 20:07 Urine RBC (Auto) 1.0 /HPF (0.0-6.0) 02/16/20 20:07 Urine Opiates Screen Presumptive negative 02/16/20 20:07 Urine Methadone Screen Presumptive negative 02/16/20 20:07 Ur Barbiturates Screen Presumptive negative 02/16/20 20:07 Ur Phencyclidine Scrn Presumptive negative 02/16/20 20:07 Ur Amphetamines Screen Presumptive negative 02/16/20 20:07 U Benzodiazepines Scrn Presumptive positive 02/16/20 20:07 Urine Cocaine Screen Presumptive negative 02/16/20 20:07 U Marijuana (THC) Screen Presumptive positive 02/16/20 20:07 Drugs of Abuse Note Disclamer 02/16/20 20:07 Blood Type A POSITIVE 02/16/20 19:45 Antibody Screen Negative 02/16/20 19:45 Elias/IV: Voiding Method Urinal IV Catheter Type [Right Hand] Peripheral IV IV Catheter Type [Left Hand] Peripheral IV Active Medications - Current Medications Current Medications: Generic Name Dose Route Start Last Admin Trade Name Freq PRN Reason Stop Dose Admin Acetaminophen 650 mg 02/16/20 17:16 Tylenol PO Q4H PRN Pain MILD(1-3)/Fever >100.5/ROCHE Aspirin 81 mg 02/17/20 10:00 02/17/20 09:27 Baby Aspirin PO 81 mg QDAY IDA Administration Atorvastatin Calcium 80 mg 02/16/20 22:00 02/16/20 21:32 Lipitor PO 80 mg QHS IDA Administration Famotidine 20 mg 02/16/20 22:00 02/17/20 09:27 Pepcid IV 20 mg BID IDA Administration Hydromorphone HCl 1 mg 02/16/20 17:16 Dilaudid IV Q3H PRN Pain , Severe (7-10) Dextrose/Sodium Chloride 1,000 mls @ 100 mls/hr 02/16/20 18:00 D5ns IV DIRECT IDA Tirofiban/Sodium Chloride 12.5 mg in 250 mls @ 16.5 mls/hr 02/16/20 18:16 02/16/20 16:59 Aggrastat Drip (12.5 Mg/250 Ml) IV 02/17/20 11:00 0.14 mcg/kg/min DIRECT IDA 16.5 mls/hr Administration Protocol Metoprolol Tartrate 25 mg 02/16/20 22:00 02/17/20 09:27 Metoprolol PO 25 mg BID IDA Administration Ondansetron HCl 4 mg 02/16/20 17:16 Zofran IV Q8H PRN Nausea And Vomiting Oxycodone/Acetaminophen 1 tab 02/16/20 17:16 Percocet 5/325 PO Q6H PRN Pain, Moderate (4-6) Sodium Chloride 10 ml 02/16/20 22:00 02/17/20 09:28 Sodium Chloride Flush Syringe 10 Ml IV 10 ml BID IDA Administration Sodium Chloride 10 ml 02/16/20 17:16 Sodium Chloride Flush Syringe 10 Ml IV PRN PRN LINE FLUSH Ticagrelor 90 mg 02/16/20 22:00 02/17/20 09:27 Brilinta PO 90 mg BID IDA Administration
[2020-02-17] MEDS ORDERED: HEPARIN 10,000 UNITS/10 ML VIAL ONE (16:24)
[2020-02-17] MEDS ORDERED: ASPIRIN EC 81 MG TAB PO ONE (16:24)
[2020-02-18] MEDS: METOPROLOL TARTRATE 25 MG TAB PO SCH (06:23)
--- NOTE | 2020-02-18 09:06 | Progress Note ---
Assessment and Plan Acute STEMI s/p PCI of the proximal left Cx using Resolute [place] drug eluting stent. LVEF 50% currently on DAPT with Brilinta and aspirin Atrial fibrillation, rate control Recommendations: Advised smoking cessation. Echocardiogram is completed, results are pending. Patient has a CHADS2 score of 0. Will continue aspirin. Continue medical therapy for coronary artery disease. On discharge, will change Brilinta to Plavix 75mg daily due to cost. As an outpatient, will plan for elective intervention to the distal RCA. Subjective Date of service: 02/18/20 Interval history: Patient is resting in bed comfortably. Denies chest pain. Objective Vital Signs Temp Pulse Pulse Resp BP Pulse Ox 02/18/20 08:23 65 02/18/20 06:23 93/62 02/18/20 04:43 98.0 F 65 18 93/62 98 02/18/20 04:00 118 H 02/18/20 00:00 118 H 02/17/20 23:31 108/57 02/17/20 23:30 98.0 F 95 H 18 106/57 100 02/17/20 20:00 122 H 122 H 18 100 02/17/20 18:53 110 H 137/69 02/17/20 17:40 118 H 19 137/69 02/17/20 17:31 112 H 18 137/69 02/17/20 17:21 114 H 10 L 137/69 99 02/17/20 17:11 120 H 17 137/69 02/17/20 17:01 110 H 15 137/69 100 02/17/20 16:45 128 H 16 137/69 100 02/17/20 16:30 111 H 18 137/69 99 02/17/20 16:15 114 H 20 109/82 96 02/17/20 16:00 97.9 F 106 H 106 H 14 113/77 97 02/17/20 15:45 109 H 14 108/86 99 02/17/20 15:31 108 H 19 114/71 97 02/17/20 15:15 122 H 16 108/86 100 02/17/20 15:00 102 H 19 88/42 98 02/17/20 14:45 109 H 21 93/51 100 02/17/20 14:31 121 H 18 90/52 98 02/17/20 14:15 120 H 24 95/62 96 02/17/20 14:00 88 25 H 111/69 97 02/17/20 13:46 113 H 105/55 02/17/20 13:45 104 H 22 105/55 98 02/17/20 13:31 110 H 16 97/60 99 02/17/20 13:15 102 H 14 110/63 99 02/17/20 13:01 98 H 11 L 108/71 100 02/17/20 12:45 98 H 18 123/85 99 02/17/20 12:31 118 H 24 125/89 98 02/17/20 12:16 112 H 20 127/85 100 02/17/20 12:00 97.8 F 104 H 104 H 12 121/89 98 02/17/20 11:45 102 H 13 109/69 99 02/17/20 11:31 117 H 15 111/75 96 02/17/20 11:15 96 H 16 111/75 98 02/17/20 11:01 113 H 20 123/96 94 02/17/20 10:45 98 H 21 117/77 96 02/17/20 10:30 105 H 17 120/82 95 02/17/20 10:15 109 H 19 96/69 96 02/17/20 10:14 108 H 24 99 02/17/20 09:45 97 H 20 113/81 99 02/17/20 09:31 99 H 17 108/80 96 02/17/20 09:27 96 H 122/82 02/17/20 09:15 104 H 22 118/84 98 02/17/20 09:01 110 H 9 L 96/69 97 - Physical Examination General: No Apparent Distress HEENT: Positive: PERRL Neck: Positive: trachea midline Cardiac: Positive: irregularly irregular Lungs: Positive: Decreased Breath Sounds Neuro: Positive: Grossly Intact
[2020-02-18 09:32] VITALS: BP 131/97
[2020-02-18] MEDS ORDERED: CLOPIDOGREL 75 MG TAB PO SCH (10:00)
--- NOTE | 2020-02-18 10:24 | Discharge Summary ---
Providers - Providers Date of Admission: 02/16/20 16:56 Date of discharge: 02/18/20 Attending physician: MARJORIE RODRIGUEZ MD 02/16/20 17:16 Consult to Physician [CONS] Routine Comment: Consulting Provider: AARON ARDON Physician Instructions: Reason For Exam: STEMI [facility] Reason for admission: STEMI Condition: Stable Pertinent studies: EKG showed inferolateral ischemia Procedures: Left heart cath and stent placement Hospital course: 34-year-old -[place] male with no significant past medical history brought into the emergency room by EMS for severe retrosternal chest pain that started approximately at 2 PM today after he had an argument with his girlfriend. Chest pain is substernal and 10 on a scale of 1-10. With radiation to the left arm. In the triage EKG was found to have inferior lateral STEMI and code STEMI was called. Patient was taken to cardiac Red Lead Burner for PCI. Patient also received aspirin and heparin bolus in the emergency room prior to being shifted to Red Lead Burner. Hone Operator on-call is Dr. Ardon. Patient was diaphoretic. No shortness of breath. No exacerbating or relieving factors except anger in this case. In the Red Lead Burner patient had 1 episode of ventricular arrhythmia and was converted back to atrial fibrillation with RVR as per the cardiology. Patient was taken emergently to Red Lead Burner and drug-eluting stent was placed on left circumflex artery, distal RCA 60 to 70% stenosis and cardiology recommended to follow the patient as an outpatient and elective PCI. Patient does not have insurance and discharged with Plavix, aspirin, metoprolol and atorvastatin. Patient has new onset A. fib and chads vascular 2 score was 0 and cardiology recommend no anticoagulation needed okay to discharge with aspirin. Rate was controlled. Patient was hemodynamically stable at the time of discharge. Patient will follow with [place] cardiology as an outpatient. Management plan was discussed in detail with the patient and understand the management plan. Patient counseled extensively about cessation of smoking. Disposition: DC- TO HOME OR SELFCARE Time spent for discharge: 32 minutes - Discharge Diagnoses (1) Acute myocardial infarction Status: Acute (2) Hypertension Status: Chronic Qualifiers: Hypertension type: essential hypertension Qualified Code(s): I10 - Essential (primary) hypertension Core Measure Documentation - Palliative Care Palliative Care/ Comfort Measures: Not Applicable - Core Measures Any of the following diagnoses?: acute TN - Acute TN Discharge Requirements Aspirin at discharge: Yes MOSHE/ARB for LVSD if EF <40%: Not Applicable Beta paul at discharge: Yes Statin for LDL = or >100 mg/dl on DC: Yes Exam - Physical Exam Narrative exam: Not in cardiopulmonary distress. The patient appeared well nourished and normally developed. Vital signs as documented. Head exam is unremarkable. No scleral icterus . Neck is without jugular venous distension, thyromegaly, or carotid bruits. Lungs are clear to auscultation. Cardiac exam reveals regular rate and Rhythm. Abdominal exam reveals normal bowel sounds, nontender, no organomegaly. Extremities are nonedematous and both femoral and pedal pulses are normal. 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 No focal weakness. - Constitutional Vitals: Temp Pulse Resp BP Pulse Ox 98.7 F 76 18 131/97 100 02/18/20 09:00 02/18/20 09:00 02/18/20 09:00 02/18/20 09:00 02/18/20 09:00 Plan Activity: no restrictions Weight Bearing Status: Full Weight Bearing Diet: low cholesterol Follow up with: JIGNA BRUSH MD [Primary Care Provider] - 7 Days DEJA HOLT MD [Staff Physician] - 7 Days Prescriptions: AtorvaSTATin [Lipitor] 80 mg PO QHS #30 tablet Aspirin [Aspirin BABY CHEW TAB] 81 mg PO QDAY #30 tab.chew Metoprolol [Lopressor TAB] 25 mg PO BID #60 tablet Clopidogrel [Plavix] 75 mg PO QDAY #60 tablet
[2020-02-18] MEDS: ASPIRIN 81 MG TAB CHEW PO SCH (10:48)
[2020-02-18] MEDS: FAMOTIDINE 20 MG/2 ML INJ IV SCH (10:49)
[2020-02-18] MEDS ORDERED: FAMOTIDINE 20 MG TAB PO SCH (22:00)
== END 2020-02-18 14:50 | disposition home or self-care (01) | DRG 247 ==
LOC: ED 15:19 → CC1 16:56 → 4A 02-17 17:53
PROVIDERS: ADMIT Internal Medicine; ATTEND Internal Medicine
PROC: 4A023N7 Measurement of Cardiac Sampling and Pressure, Left Heart, Percutaneous Approach (ICD-10-PCS; principal; 2020-02-16)
PROC: 027034Z Dilation of Coronary Artery, One Artery with Drug-eluting Intraluminal Device, Percutaneous Approach (ICD-10-PCS; 2020-02-16)
PROC: B2151ZZ Fluoroscopy of Left Heart using Low Osmolar Contrast (ICD-10-PCS; 2020-02-16)
PROC: B2111ZZ Fluoroscopy of Multiple Coronary Arteries using Low Osmolar Contrast (ICD-10-PCS; 2020-02-16)
DX: I21.19 ST elevation (STEMI) myocardial infarction involving other coronary artery of inferior wall (principal); I48.20 Chronic atrial fibrillation, unspecified; Z79.82 Long term (current) use of aspirin; Z82.49 Family history of ischemic heart disease and other diseases of the circulatory system; I10 Essential (primary) hypertension
CPT/HCPCS: 36415; 71045; 80048; 80053; 80061; 80307; 81001; 82550; 82553; 83036; 84484; 85025; 85610; 85730; 86850; 86900; 86901; 92941; 93005; 93306; 93458; 96374; 99406; G0378; A9270-GY; C1725; C1769; C1874; C1887; C1894; C9606; J0583; J1644; J2250; J3010; J3246; J7030; Q9967